=== PATIENT | female | born 1990 | race Two or more races ===

== ENCOUNTER 2017-06-13 16:23 | Emergency (ER) | payer MEDICAID ==
[~2017-06-13] VITALS: Ht 170.2 cm; Wt 63.5 kg
[2017-06-13] MEDS ORDERED: TRAMADOL HCL 50 MG TABLET ONE (16:43)
[2017-06-13] MEDS ORDERED: ONDANSETRON 4 MG TAB.RAPDIS ONE (16:43)
[2017-06-13] MEDS ORDERED: ONDANSETRON 4 MG TAB.RAPDIS PO ONE (17:00)
[2017-06-13] MEDS ORDERED: TRAMADOL HCL 50 MG TABLET PO ONE (17:00)
[2017-06-13 18:05] VITALS: BP 129/84
== END 2017-06-13 18:05 | disposition home or self-care (01) ==
LOC: ER 16:25
DX: M25.562 Pain in left knee (principal); M79.672 Pain in left foot; V06.99XA Pedestrian with other conveyance injured in collision with other nonmotor vehicle, unspecified whether traffic or nontraffic accident, initial encounter; Y93.89 Activity, other specified; Y92.413 State road as the place of occurrence of the external cause; Y99.8 Other external cause status
CPT/HCPCS: 29505; 73564; 73630; 99284; A4606; Q0162; Z7610